=== PATIENT | male | born 1955 | race Caucasian/White ===

== ENCOUNTER 2020-03-28 14:23 | Inpatient (IN) | payer MEDICARE ==
[~2020-03-28] VITALS: Ht 185.4 cm; Wt 70.6 kg
--- NOTE | ~2020-03-28 | EEG ---
[address] [address] EEG STUDY REPORT Name: GEELIZ Mitch Room: [address] IN .R.#: [id number] Admission: 03/28/20 Attend Phys: Ifeanyi Velazquez MD Discharge: Date of : 57 Report #: [id number] THIS REPORT FOR: //name// CC: FAM physician/PCP Ifeanyi Velazquez DATE OF SERVICE: 03/30/2020 This patient is being evaluated for seizure. EEG was done by placing the electrode by standard 10-20 system of electrode placement. Both referential and sequential montages were used for recording. Background activity in this patient's EEG is about 9 Hz and 30 microvolt. It is a symmetrical activity. The patient went to sleep that is associated with bilateral slowing and vertex sharp waves. Photic stimulation is unremarkable. Throughout the record, no active epileptiform activity was noticed. IMPRESSION: This patient's EEG is within normal limit. Thank you very much for this referral. By: 1432 [id number] Angel Villatoro MD /nt
--- NOTE | ~2020-03-28 | CON ---
[address] [address] CONSULTATION Name: LIZ FLYNN Mitch Room: [address] IN M.R.#: [id number] Admission: 03/28/20 Attend Phys: Ifeanyi Velazquez MD Discharge: Date of : 57 Report #: [id number] THIS REPORT FOR: //name// cc: ALIN Gregory family physician/PCP ALIN - No family physician/PCP ~ THIS REPORT FOR: //name// CC: ALIN physician/PCP Ifeanyi Velazquez DATE OF SERVICE: 03/29/2020 HISTORY OF PRESENT ILLNESS: This is a 64-year-old male patient who was seen by me for seizure. The patient indicates that he does not remember anything about the seizure. He was walking in his store and next thing he remembers is that he was in the hospital. He never had any seizures before. I do not have any firsthand witness I can interview, but the record from Emergency Room indicates that he had a grand mal seizures, lasting about 4-5 minutes. He was postictal, but now feels back to normal. He goes to [place] for his medical care. He said he has been diagnosed with neuropathy, which has been attributed to his longstanding history of alcohol. He said he stopped drinking alcohol 7 years ago and has not drank any alcohol since then. His alcohol level here was less than 10. His drug screen was negative. He does not remember any recent event which can cause him seizure. He is not sleep deprived or under any undue stress. REVIEW OF SYSTEMS: A 14-point review of systems is carried out as positive for heavy alcoholism for a long time before he stopped drinking alcohol about 7 years ago. He has a history of renal cell carcinoma as well as esophageal carcinoma. His white count was up when he came in, but that may be because of seizure. His blood sugar was high when he came in. As mentioned above, he feels back to his baseline now. His rest of the 14-point review of system was noncontributory. PAST MEDICAL HISTORY: Positive for alcoholism, but the patient says he is sober for the last 7 years. FAMILY HISTORY: Unremarkable. SOCIAL HISTORY: He does not smoke or drink any alcohol now. PHYSICAL EXAMINATION: Indicates he is alert, responsive, able to follow simple and complex command. His speech, concentration, fund of knowledge and memory is at his baseline. Cranial nerve examination 2-12 [place] [address] CONSULTATION Name: LIZ FLYNN Room: [address] IN [facility]#: [id number] Admission: 03/28/20 Attend Phys: Ifeanyi Velazquez MD Discharge: Date of : 57 Report #: [id number] Neuromuscular examination indicates that he could not tell me the position sense and his reflexes are absent in the lower extremities. He indicates that is his baseline. There is no cerebellar sign. I could not look at the fundus. He is reasonably well-developed individual. He has no thyroid mass. There is no carotid bruit. Cardiac examination is noncontributory. No respiratory difficulty or rhonchi. Blood pressure is running low at 93/60, pulse is 99, temperature is 97.9. He did have a CT scan of the head on admission that does not show any definite abnormality. His pulses are palpable. LABORATORY DATA: His lab indicate a white count of 17.2, but magnesium is normal. IMPRESSION: New onset of grand mal seizure. The patient does have a prior history of heavy alcoholism, but he has been sober for 7 years. It is unlikely to start seizures at this age. He does have a previous history of carcinoma. Because of that, I think we should do an MRI with and without contrast. I did discuss that options with him and I also discussed with him that we can do the MRI without contrast. I discussed the advantages and disadvantages of both. His creatinine is normal and his GFR is somewhat low at 47. I discussed with him the irreversible dermatological side effect, which can occur and allergic reaction to the contrast. He understands that and he wants to proceed with MRI of the brain with and without contrast. We will schedule that. We will schedule the EEG. Further workup will depend upon the outcome of the above testing. I did discuss with him that he needs to take seizure precautions. He cannot drive at least for 6 months. The question of putting him on anticonvulsant like Keppra is an open question. Previously, most of the neurologists did not use to put this patient on anticonvulsant after 1 year. Now, it depends upon the assessment of the possibility of reoccurrence. Thus difficult to assess in this patient with prior history of alcoholism and cancer and hopefully, we can make an assessment after the patient's MRI is available and EEG is available, we will discuss that with him that time. He wants to follow this plan. He does have a neuropathy. He goes [facility] and I suspect that workup is already done there. We will defer that to them. Thank you very much for this referral. By: 1156 1219Miguel Angel Villatoro MD /marzena
[~2020-03-28 14:23] MED LIST: HYDROXYZINE PAM50 MG PO; PRAZOSIN HCL5 MG PO; QUETIAPINE FUM100 MG PO; REMERON SOLTAB45 MG PO; SENNA-DOCUSATE1 EAC1 PO
[2020-03-28 14:24] VITALS: BP 115/71
[2020-03-28] MEDS ORDERED: SEROQUEL XR 30300 M1 PO (14:36)
[2020-03-28] MEDS ORDERED: OMEPRAZOLE40 MG PO (14:37)
[2020-03-28] MEDS ORDERED: HYDROXYZINE PAM50 MG PO (14:37)
[2020-03-28] MEDS ORDERED: PRAZOSIN HCL5 MG PO (14:37)
[2020-03-28 16:26] LABS: HEMATOCRIT 40.3 % (42.0-52.0); HEMOGLOBIN 13.6 gm/dL (14.0-18.0); MCHC 33.8 g/dL (28.0-37.0); MCV 88.7 fL (80.0-100.0); MPV 7.2 fl. (7.2-11.1); NUCLEATED RBCS 0 /100WBC; PLATELET COUNT* 268 thou/uL (150-400); RBC 4.54 mil/uL (4.50-6.00); WBC 17.2 thou/uL (4.0-11.0)
[2020-03-28 16:31] LABS: CALCIUM 8.4 mg/dL (8.5-10.1); CREATININE 1.4 mg/dL (0.6-1.3); POTASSIUM 4.3 mmol/L (3.5-5.1)
[2020-03-28 16:36] LABS: ALBUMIN 3.6 g/dL (3.4-5.0); TOTAL BILIRUBIN 0.3 mg/dL (<0.1-1.0); TOTAL PROTEIN 6.6 g/dL (6.4-8.2)
[2020-03-28 16:50] LABS: ABSOLUTE LYMPHOCYTES 1.9 thou/uL (0.8-5.3); ABSOLUTE MONOCYTES 0.5 thou/uL (0.0-1.2); ABSOLUTE NEUTROPHILS 14.8 thou/uL (1.6-8.1); ATYPICAL LYMPHS 1 %; PLATELET ESTIMATE ADEQUATE
[2020-03-28 19:08] LABS: URINE BILIRUBIN NEGATIVE (Negative); URINE BLOOD NEGATIVE (Negative); URINE CLARITY CLEAR; URINE COLOR YELLOW; URINE GLUCOSE-RANDOM NEGATIVE (Negative); URINE KETONES NEGATIVE (Negative); URINE LEUKOCYTES-REFLEX NEGATIVE (Negative); URINE NITRITE-REFLEX NEGATIVE (Negative); URINE PROTEIN NEGATIVE (Negative); URINE SPECIFIC GRAVITY <= 1.005 (1.005-1.030); URINE UROBILINOGEN 0.2 E.U./dl (0.2-1.0)
[2020-03-28 19:17] LABS: AMP/METHAMP Negative (Negative); BARBITURATES Negative (Negative); BENZODIAZEPINES Negative (Negative); COCAINE Negative (Negative); METHADONE Negative (Negative); OPIATES Negative (Negative); PCP Negative (Negative); THC POSITIVE (Negative)
[2020-03-28 19:56] VITALS: BP 116/78
[2020-03-28 20:00] VITALS: BP 115/70
[2020-03-29 00:31] VITALS: BP 104/72
[2020-03-29 04:09] VITALS: BP 93/60
[2020-03-29 04:48] LABS: CALCIUM 8.9 mg/dL (8.5-10.1); CREATININE 1.5 mg/dL (0.6-1.3); POTASSIUM 4.5 mmol/L (3.5-5.1)
--- NOTE | 2020-03-29 05:15 | NUR ---
RECEIVED PT FROM ED PER CART AT APPROX 2000. PT IS AWAKE AND ORIENTED X4. INSTRUMENT CALIBRATOR IS TRACING SR. ADMISSION ASSESSEMENT DONE CHARTED. PT IS ORIENTED ON ROOM SET UP AND ON THE USE OF CALL LIGHT. FALL PRECAUTIONS AND SEIZURE PRECAUTIONS IN PLACE. PT DENIES PAIN/DISCOMFORT. CALL LIGHT WITHIN REACH. HOURLY ROUNDING DONE FOR PT SAFETY.
[2020-03-29 08:00] VITALS: BP 105/69
--- NOTE | 2020-03-29 10:39 | EKG ---
[place] [address] ELECTROCARDIOGRAM REPORT Name: LIZ FLYNN Room: [address] ADM IN .R.#: [id number] Admission: 03/28/20 Attend Phys: Ifeanyi Velazquez, Discharge: Date of : 57 Date of Service: 03/28/20 1424 Report #: [id number] THIS REPORT FOR: //name// [facility] ED Test Date: 2020-03-28 Test Time: 14:24:58 Pat Name: LIZ FLYNN Department: Room: [facility] Gender: M Mirror Department Supervisor: LILI : 1955 Requested By: Ta Pruett Order Number: [id number] MD: Marlon Ge Measurements Intervals [place] Rate: 85 P: 50 [place]: 136 QRS: 50 QRSD: 102 T: 77 QT: 403 QTc: 480 Interpretive Statements Sinus rhythm Low voltage, extremity leads ST elevation, consider inferior injury Borderline prolonged QT interval Compared to ECG 07/26/2006 19:58:01 Low QRS voltage now present Myocardial infarct finding still present Electronically Signed On 03-29-2020 10:38:11 CDT by Marlon Ge [email or web address] <ELECTRONICALLY SIGNED> By: Marlon Ge MD, FACC 03/29/20 1038 1424 1424 Marlon Ge MD, FAC /EPI
[2020-03-29 11:58] VITALS: BP 113/67; BP 129/55
--- NOTE | 2020-03-29 16:40 | NUR ---
SW called pt to complete initial assessment, introduce self, and SW role. Pt sounded alert and oriented, pleasant. Pt lives at home alone and is normally independent. Pt has cane, walker if needed. Pt does not have any hx with services or SNF. Pt says he has a good support system in his family and friends. Pt did not express any dc needs at this time. SW to remain available to assist with safe dc planning if needs arise.
[2020-03-29 16:45] VITALS: BP 101/72
--- NOTE | 2020-03-29 18:40 | NUR ---
ASSUMED PT CARE AT 0700, PT A&O X4, VSS, RA, YARD PERSON TRACING SINUS RHYTHM. PT EDUCATED ON EEG AND MRI TOMORROW, MRI SCREENING TOOL AND CONSENT SIGNED AND IN CHART. PT DENIES ANY PAIN OR DISTRESS THIS SHIFT, HOULRY ROUNDING COMPLETED.
[2020-03-29 20:00] VITALS: BP 127/67
--- NOTE | 2020-03-29 23:46 | NUR ---
PT HAS SOME OF HIS HOME MEDICATIONS WITH HIM IN HIS ROOM. I EDUCATED THE PT THAT IT IS OUR POLICY TO HAVE ALL HOME MEDICATIONS STORED IN THE PHARMACY. PT BECAUSE VERY LOUD AND AGITATED STATING THAT I WILL NOT TAKE HIS MEDICATIONS AWAY FROM HIM AND PROCEDED TO TAKE THE MEDICATIONS OUT OF MY HANDS. I EDUCATED THE PT ON THE IMPORTANCE OF NOT TAKING ANY OF HIS MEDICATIONS WHILE HE WAS HERE AND THAT WE WOULD PROVIDE ALL MEDICATIONS THAT HE NEEDED. PT STILL REFUSED TO HAVE MEDICATIONS SENT TO PHARMACY.
[2020-03-30 00:31] VITALS: BP 120/72
[2020-03-30 04:00] VITALS: BP 107/63
--- NOTE | 2020-03-30 05:47 | NUR ---
ASSESSMENTS COMPLETED AT BEDSIDE, PLEASE REFER TO CHARTING FOR DETAILS. MEDICATIONS ADMINISTERED PER MAR. NO C/O PAIN OR DISCOMFORT NOTED BY PT, HOURLY ROUNDING COMPLETED FOR SAFETY, CALL LIGHT WITHIN REACH.
[2020-03-30 08:00] VITALS: BP 114/60
[2020-03-30 12:07] VITALS: BP 109/64
[2020-03-30 15:17] LABS: ABSOLUTE BASOPHILS 0.1 thou/uL (0.0-0.2); ABSOLUTE EOSINOPHILS 0.3 thou/uL (0.0-0.7); ABSOLUTE LYMPHOCYTES 1.8 thou/uL (0.8-5.3); ABSOLUTE MONOCYTES 0.6 thou/uL (0.0-1.2); ABSOLUTE NEUTROPHILS 2.8 thou/uL (1.6-8.1); EOSINOPHILS 5.1 %; HEMATOCRIT 37.5 % (42.0-52.0); HEMOGLOBIN 12.9 gm/dL (14.0-18.0); MCH 30.1 pg (26.0-34.0); MCHC 34.3 g/dL (28.0-37.0); MCV 87.8 fL (80.0-100.0); MONOCYTES 10.5 %; MPV 6.9 fl. (7.2-11.1); NUCLEATED RBCS 0 /100WBC; PLATELET COUNT* 247 thou/uL (150-400); POLYS 50.4 %; RBC 4.27 mil/uL (4.50-6.00); RDW-CV 14.8 % (10.5-14.5); WBC 5.5 thou/uL (4.0-11.0)
[2020-03-30 16:18] VITALS: BP 109/68
[2020-03-30 16:57] VITALS: BP 109/68
--- NOTE | 2020-03-30 17:20 | NUR ---
ORDER RECEIVED TO DISCHARGE PAZ HOME TO SELF CARE WITH RESTICTION OF NO DRIVING UNTIL HE IS CLEARED BY NEUROLOGY AND/OR FREE FROM SEIZURES FOR 6 MONTHS. MED REC, MEDICATION EDUCATION, STROKE EDUCATION, AND NEED FOR FOLLOW UP APPOINTMENTS WITH PRIMARY AND NEURO COVERED WITH PATIENT. IV REMOVED AND TELEMETRY PACK REOMVED. DC TIME OF 17:30.
== END 2020-03-30 18:05 | disposition home or self-care (01) | DRG 101 ==
LOC: M.ERS 14:23 → M.2W 17:47 → M.TBA-ER 17:47 → M.2W 19:19
PROVIDERS: Emergency Medicine Emergency Medical Services; Internal Medicine; ADMIT Internal Medicine
DX: G40.409 Other generalized epilepsy and epileptic syndromes, not intractable, without status epilepticus (principal); G62.9 Polyneuropathy, unspecified; F10.21 Alcohol dependence, in remission; G89.29 Other chronic pain; F12.90 Cannabis use, unspecified, uncomplicated; K21.9 Gastro-esophageal reflux disease without esophagitis; N18.3 Chronic kidney disease, stage 3 (moderate); F41.9 Anxiety disorder, unspecified; F32.9 Major depressive disorder, single episode, unspecified; F43.10 Post-traumatic stress disorder, unspecified; I12.9 Hypertensive chronic kidney disease with stage 1 through stage 4 chronic kidney disease, or unspecified chronic kidney disease; D72.829 Elevated white blood cell count, unspecified; G47.00 Insomnia, unspecified; E53.8 Deficiency of other specified B group vitamins; Z88.0 Allergy status to penicillin; Z79.899 Other long term (current) drug therapy; Z85.528 Personal history of other malignant neoplasm of kidney; Z90.5 Acquired absence of kidney; Z87.891 Personal history of nicotine dependence; Z85.01 Personal history of malignant neoplasm of esophagus